=== PATIENT | female | born 1995 | race Asian ===

== ENCOUNTER 2018-03-09 01:09 | Emergency (ER) | payer SELFPAY ==
[~2018-03-09] VITALS: Ht 170.2 cm; Wt 53.8 kg
[2018-03-09 01:44] VITALS: Ht 170.2 cm; Wt 53.8 kg
[2018-03-09 05:36] VITALS: BP 108/75
== END 2018-03-09 05:36 | disposition home or self-care (01) ==
LOC: ED 01:09
DX: S61.210A Laceration without foreign body of right index finger without damage to nail, initial encounter (principal); X58.XXXA Exposure to other specified factors, initial encounter; Y93.89 Activity, other specified; Y92.89 Other specified places as the place of occurrence of the external cause; Y99.8 Other external cause status
CPT/HCPCS: 90715; J2001

== ENCOUNTER 2018-03-11 17:46 | Emergency (ER) | payer SELFPAY ==
[~2018-03-11] VITALS: Ht 170.2 cm; Wt 53.5 kg
[2018-03-11 18:02] VITALS: Ht 170.2 cm; Wt 53.5 kg
[2018-03-11 18:54] VITALS: BP 93/47
== END 2018-03-11 18:54 | disposition home or self-care (01) ==
LOC: ED 17:46
DX: S61.210D Laceration without foreign body of right index finger without damage to nail, subsequent encounter (principal); X58.XXXD Exposure to other specified factors, subsequent encounter